=== PATIENT | female | born 1985 | race American Indian/Alaskan Native ===

== ENCOUNTER 2019-03-08 11:45 | Emergency (ER) | payer MEDICAID, OTHER ==
[2019-03-08 12:33] VITALS: BP 121/101
--- NOTE | 2019-03-08 12:45 | Emergency Department Report ---
Chief Complaint: Extremity Injury, Upper Stated Complaint: RT ARM PAIN/SWELLING Time Seen by Provider: 03/08/19 12:36 - HPI History of Present Illness: Was working out doing planks then devleoped pain to right shoulder worse with over head activity and various ROM. 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 Pain has been present for the last couple days. - ROS Review of Systems: all neg except as per HPI - Exam Vital Signs: Vital Signs 03/08/19 12:32 Temperature 98.3 F Pulse Rate 77 Respiratory 18 Rate Blood Pressure 121/101 O2 Sat by Pulse 99 Oximetry Physical Exam: GENERAL APPEARANCE: AxOx4, generally well-appearing M/F, no acute distress. HEENT: NC, AT. MMM. EOMI, clear conjunctiva, oropharynx clear. NECK: Supple without lymphadenopathy. No stiffness or restricted ROM. HEART: Normal rate and regular rhythm, normal S1/S1, no m/r/g LUNGS: CTAB, moving air well. No crackles or wheezes are heard. ABDOMEN: Soft, nontender, nondistended with good bowel sounds heard. BACK: No CVAT, no obvious deformity. EXTREMITIES: Without cyanosis, clubbing or edema. No sulcus sign. Pain wth garduno and obriens test. NEUROLOGICAL: Grossly nonfocal. Alert and oriented, moving all 4 extremities. CN not formally tested but appear grossly intact. Observed to ambulate with normal gait. Skin: Warm and dry without any rash. MSE screening note: Focused history and physical exam performed. Due to findings the following was ordered: advised f/u with orthopedic and discussed Rest and Ice therapy with nsaids. No emergent medical condition at current symptoms appear to be scondary to musculosketal . ED Disposition for MSE Clinical Impression: Right shoulder strain Disposition: Z-07 MED SCREENING EXAM-LEFT Condition: Stable Instructions: Rotator Cuff Injury (ED), Tenosynovitis (ED), Shoulder Sprain (ED) Referrals: [facility] [Provider Group] - 3-5 Days
== END 2019-03-08 19:44 | disposition left against medical advice (07) ==
LOC: ED 11:45
DX: S46.911A Strain of unspecified muscle, fascia and tendon at shoulder and upper arm level, right arm, initial encounter (principal); X58.XXXA Exposure to other specified factors, initial encounter; Y93.89 Activity, other specified; Y92.89 Other specified places as the place of occurrence of the external cause; Y99.8 Other external cause status
CPT/HCPCS: 99282